=== PATIENT | male | born 2000 | race Two or more races ===

== ENCOUNTER 2021-12-07 19:44 | Emergency (ER) | payer OTHER ==
[~2021-12-07] VITALS: Ht 175.3 cm; Wt 77.1 kg
[2021-12-07 19:51] VITALS: BP 123/75
--- NOTE | 2021-12-07 19:54 | NUR ---
BEE FROM AN URGENT CARE. TO ER BED 4. AAOX4. NOT IN RESP DISTRESS. BROUGHT IN FOR A SYNCOPAL EPISODE WHILE HAVING HIS BLOOD DRAWN. NO HT. WAS AT THE BEDSIDE FOR EVAL.
--- NOTE | 2021-12-07 19:59 | NUR ---
EMT AT PT'S BEDSIDE FOR EKG
--- NOTE | 2021-12-07 20:34 | NUR ---
Patient discharged to home in stable condition. Written and verbal after care instructions given. Patient verbalizes understanding of instruction. PT ambulatory with a steady gait
== END 2021-12-07 21:00 | disposition home or self-care (01) ==
LOC: ER 19:50
DX: R55 Syncope and collapse (principal); F12.90 Cannabis use, unspecified, uncomplicated